=== PATIENT | female | born 1980 ===

== ENCOUNTER 2019-03-06 18:22 | Inpatient (IN) | payer BC, MEDICAID ==
[2019-03-06] MEDS ORDERED: LIDOCAINE 1% (MPF) 30 ML INJ INJ (19:30)
[2019-03-06] MEDS ORDERED: MISOPROSTOL 200 MCG TAB PR (19:30)
[2019-03-06] MEDS ORDERED: IBUPROFEN 600 MG TAB PO (19:30)
[2019-03-06] MEDS ORDERED: OXYTOCIN 30 UNITS/LR 500 ML IV ×3 (19:30)
[2019-03-06] MEDS ORDERED: METHYLERGONOVINE 0.2 MG INJ IM (19:30)
[2019-03-06] MEDS ORDERED: BUTORPHANOL 2 MG INJ IV (19:30)
[2019-03-06] MEDS ORDERED: CARBOPROST 250 MCG INJ IM (19:30)
[2019-03-06 19:53] LABS: ADD MAN DIFF? NO
[2019-03-06 19:56] LABS: BASOPHILS % 0.4 % (0.0-2.0); EOSINOPHILS # 0.1 10^3/ul (0.0-0.5); EOSINOPHILS % 1.1 % (0.0-7.0); HEMATOCRIT 32.4 % (37.0-47.0); HEMOGLOBIN 9.8 g/dl (12.0-16.0); LYMPHOCYTES # 1.6 10^3/ul (0.8-2.9); LYMPHOCYTES % 20.1 % (15.0-51.0); MEAN CORPUSCULAR HEMOGLOBIN 24.7 pg (29.0-33.0); MEAN CORPUSCULAR HGB CONC 30.2 g/dl (32.0-37.0); MEAN CORPUSCULAR VOLUME 81.8 fl (82.0-101.0); MEAN PLATELET VOLUME 10.8 fl (7.4-10.4); MONOCYTE # 0.7 10^3/ul (0.3-0.9); MONOCYTES % 8.2 % (0.0-11.0); NEUTROPHIL # 5.5 10^3/ul (1.6-7.5); NEUTROPHILS % 69.6 % (39.0-77.0); PLATELET COUNT 227 10^3/UL (140-415); RED BLOOD COUNT 3.96 10^6/ul (4.20-5.40); RED CELL DISTRIBUTION WIDTH 18.1 % (11.5-14.5)
[2019-03-06 19:56] LABS: WHITE BLOOD COUNT 7.9 10^3/ul (4.8-10.8)
[2019-03-06 20:15] LABS: INR 0.89; PROTIME 12.2 Sec (11.9-14.9)
[2019-03-06 20:16] LABS: PARTIAL THROMBOPLASTIN TIME 26.5 Sec (23.0-35.0)
[2019-03-06 20:39] LABS: HEPATITIS B SURFACE ANTIGEN NEGATIVE (NEGATIVE)
[2019-03-06] MEDS: LACTATED RINGER'S 1,000 ML IV (21:31)
[2019-03-06] MEDS: AMPICILLIN 2 GM/NS (PMX) 100 ML IV (21:32)
[2019-03-06] MEDS: OXYTOCIN 30 UNITS/LR 500 ML IV (22:29)
[2019-03-06] MEDS: PANTOPRAZOLE 40 MG INJ IV (23:29)
[2019-03-07] MEDS: BUTORPHANOL 2 MG INJ IV (00:12)
[2019-03-07] MEDS: AMPICILLIN 1 GM/NS (PMX) 50 ML IV ×6 (01:14→21:27)
[2019-03-07] MEDS: LACTATED RINGER'S 1,000 ML IV ×3 (03:26→13:23)
[2019-03-07] MEDS ORDERED: FENTAnyl 2MCG/ML-ROPIV 0.2% 100 ML (04:12)
[2019-03-07] MEDS ORDERED: NALOXONE (0.4 MG/ML) INJ IV (04:30)
[2019-03-07] MEDS ORDERED: DIPHENHYDRAMINE 50 MG INJ IV (04:30)
[2019-03-07] MEDS: ONDANSETRON 4 MG INJ IV (05:07)
[2019-03-07] MEDS: FENTAnyl 2MCG/ML-ROPIV 0.2% 100 ML BAG EPI ×2 (13:00→19:56)
[2019-03-07 16:34] LABS: RAPID PLASMA REAGIN NONREACTIVE (NR)
[2019-03-07] MEDS ORDERED: SOD CHLORIDE 0.9% 1,000 ML IV (18:00)
[2019-03-07] MEDS ORDERED: CEFAZOLIN 2 GM/50 ML (PMX) 50 ML IVPB (23:30)
[2019-03-07] MEDS ORDERED: LIDOCAINE 1.5%/EPI MPF (SDV) 30 ML VIAL (23:31)
[2019-03-07] MEDS ORDERED: morphine SULFATE/PF (10 MG/10 ML) INJ (23:31)
[2019-03-07] MEDS ORDERED: FENTAnyl 50 MCG/ML VIAL (23:31)
[2019-03-07] MEDS ORDERED: MIDAZOLAM 1 MG/ML 2 ML INJ (23:38)
[2019-03-07] MEDS ORDERED: DEXAMETHASONE 4 MG/ML 1 ML INJ (23:39)
[2019-03-07] MEDS ORDERED: FAMOTIDINE 20 MG INJ (23:40)
[2019-03-08] MEDS ORDERED: ZOLPIDEM 5 MG TAB PO
[2019-03-08] MEDS ORDERED: ONDANSETRON 4 MG INJ IV
[2019-03-08] MEDS ORDERED: NALOXONE (0.4 MG/ML) INJ IV
[2019-03-08] MEDS ORDERED: HYDROmorphONE 0.5 MG/0.5 ML SYG IV ×2
[2019-03-08] MEDS ORDERED: DIPHENHYDRAMINE 50 MG INJ IV
[2019-03-08] MEDS ORDERED: PROVENTIL HFA 6.7GM INHALER (00:13)
[2019-03-08] MEDS ORDERED: PHENYLephrine (100 MCG/ML) 10ML SYG (00:16)
[2019-03-08] MEDS ORDERED: EPINEPHrine 0.1 MG/ML SYG (00:16)
[2019-03-08] MEDS ORDERED: KETOROLAC 30 MG INJ (00:17)
[2019-03-08] MEDS ORDERED: FENTAnyl 50 MCG/ML VIAL ×2 (00:21→00:36)
[2019-03-08] MEDS ORDERED: NACL 0.9% 3 ML SYG IV (01:30)
[2019-03-08] MEDS ORDERED: CARBOPROST 250 MCG INJ IM (01:30)
[2019-03-08] MEDS ORDERED: METHYLERGONOVINE 0.2 MG INJ IM (01:30)
[2019-03-08] MEDS ORDERED: MISOPROSTOL 200 MCG TAB PR (01:30)
[2019-03-08] MEDS ORDERED: OXYTOCIN 30 UNITS/LR 500 ML IV (01:30)
[2019-03-08] MEDS: AZITHROMYCIN 500MG/NS (PMX) 250 ML IV (02:21)
[2019-03-08] MEDS: MINERAL OIL LIGHT 10 ML VIAL TOP (02:21)
[2019-03-08] MEDS: OXYTOCIN 30 UNITS/LR 500 ML IV (02:24)
[2019-03-08] MEDS: LANOLIN HPA 1 PKT TOP (16:07)
[2019-03-08] MEDS: LACTATED RINGER'S 1,000 ML IV (16:08)
[2019-03-08] MEDS: KETOROLAC 30 MG INJ IV ×2 (16:08→22:35)
[2019-03-09] MEDS: IBUPROFEN 800 MG TAB PO ×5 (05:39→23:42)
[2019-03-09] MEDS: HYDROCODONE/APAP (5/325) TAB PO ×4 (08:38→22:35)
[2019-03-09 08:59] LABS: ADD MAN DIFF? NO
[2019-03-09 09:11] LABS: WHITE BLOOD COUNT 10.5 10^3/ul (4.8-10.8)
[2019-03-09 09:11] LABS: BASOPHILS % 0.4 % (0.0-2.0); EOSINOPHILS # 0.1 10^3/ul (0.0-0.5); EOSINOPHILS % 1.2 % (0.0-7.0); HEMATOCRIT 26.2 % (37.0-47.0); LYMPHOCYTES # 1.5 10^3/ul (0.8-2.9); LYMPHOCYTES % 13.8 % (15.0-51.0); MEAN CORPUSCULAR HEMOGLOBIN 25.4 pg (29.0-33.0); MEAN CORPUSCULAR HGB CONC 30.5 g/dl (32.0-37.0); MEAN CORPUSCULAR VOLUME 83.2 fl (82.0-101.0); MEAN PLATELET VOLUME 11.3 fl (7.4-10.4); MONOCYTE # 0.5 10^3/ul (0.3-0.9); MONOCYTES % 4.6 % (0.0-11.0); NEUTROPHIL # 8.4 10^3/ul (1.6-7.5); NEUTROPHILS % 79.5 % (39.0-77.0); PLATELET COUNT 220 10^3/UL (140-415); RED BLOOD COUNT 3.15 10^6/ul (4.20-5.40); RED CELL DISTRIBUTION WIDTH 18.6 % (11.5-14.5)
[2019-03-09] MEDS: LANOLIN HPA 1 PKT TOP (13:54)
[2019-03-10] MEDS: HYDROCODONE/APAP (5/325) TAB PO ×4 (03:40→20:11)
[2019-03-10] MEDS: IBUPROFEN 800 MG TAB PO ×4 (05:43→23:42)
[2019-03-10] MEDS: DOCUSATE SODIUM 100 MG CAP PO ×2 (11:51→22:18)
[2019-03-11] MEDS: HYDROCODONE/APAP (5/325) TAB PO ×2 (03:30→10:20)
[2019-03-11] MEDS: IBUPROFEN 800 MG TAB PO ×3 (05:52→13:18)
[2019-03-11] MEDS: DOCUSATE SODIUM 100 MG CAP PO (08:31)
[2019-03-11] MEDS: DIPHTH/TET/ACEL PERTUSS (ADULT) 0.5 ML VIAL IM* (09:00)
[2019-03-11] MEDS ORDERED: BISACODYL 10 MG SUPP PR (15:00)
== END 2019-03-11 15:48 | disposition home or self-care (01) | DRG 788 ==
LOC: L-D 03-07 23:37 → PP1 03-08 03:34
PROVIDERS: Obstetrics & Gynecology
PROC: 10D00Z1 Extraction of Products of Conception, Low, Open Approach (ICD-10-PCS; principal; 2019-03-08)
PROC: 0UB90ZZ Excision of Uterus, Open Approach (ICD-10-PCS; 2019-03-08)
DX: O33.9 Maternal care for disproportion, unspecified (principal); O62.1 Secondary uterine inertia; O99.824 Streptococcus B carrier state complicating childbirth; O34.13 Maternal care for benign tumor of corpus uteri, third trimester; D25.9 Leiomyoma of uterus, unspecified; Z3A.39 39 weeks gestation of pregnancy; Z37.0 Single live birth
CPT/HCPCS: 62322; 76815; 76818; 85025; 85610; 85730; 86592; 86850; 86900; 86901; 87340; 88305; 99464